=== PATIENT | female | born 1995 | race Caucasian/White ===

== ENCOUNTER 2020-10-29 09:27 | Outpatient (CLI) | payer OTHER ==
--- NOTE | 2020-10-29 12:59 | Ultrasound Report ---
PROCEDURE: Head or Neck Soft Tissue INDICATIONS: CERVICAL LYMPHADEOPATHY TECHNIQUE: Real time scanning was performed of the neck region of interest, with image documentation . COMPARISON: None. FINDINGS: Small subcutaneous level 2 node present on the right measuring 1.3 x 0.8 x 1.0 cm. No suspicious feat ures. IMPRESSION: Small subcutaneous unremarkable lymph node without enlargement. Reviewed by: Darryl Burgos MD on 10/29/2020 11:57 AM [facility] Approved by: Darryl Burgos MD on 10/29/2020 11:57 AM AKDT Station ID: [id number]
== END 2020-10-29 09:28 | disposition home or self-care (01) ==
LOC: DI 09:27
PROVIDERS: ATTEND Registered Nurse
DX: R59.0 Localized enlarged lymph nodes (principal)